=== PATIENT | female | born 1935 | race Caucasian/White ===

== ENCOUNTER → 2016-11-03 | Outpatient (CLI) | payer MEDICARE, OTHER ==
[~2016-11-03] MED LIST: ATOR10 PO; CEPH500C3 PO; COZA100T PO; LEVO.1 PO; LORT5TAB PO; PREV30CA36 PO; TOPR50TA PO
[2016-11-03 13:20] LABS: ALT (GPT) 21 U/L (10-53); ANION GAP 7 MEQ/L (5-15); AST (GOT) 24 U/L (15-37); BICARBONATE 29.3 MEQ/L (21.0-32.0); BLOOD UREA NITROGEN 16 MG/DL (7-18); CHLORIDE 107 MEQ/L (98-107); GLOMERULAR FILTRATION RATE 74 ML/MIN (>89); GLUCOSE,FASTING 103 MG/DL (74-99); POTASSIUM 4.4 MEQ/L (3.5-5.1); SODIUM (NA) 143 MEQ/L (136-145)
[2016-11-03 13:30] LABS: ALKALINE PHOSPHATASE 50 U/L (45-117); HDL CHOLESTEROL 61.3 MG/DL (40.0-60.0); LDL CHOLESTEROL 73 MG/DL (0-99); TOTAL BILIRUBIN ADULT 0.5 MG/DL (0.2-1.0)
== END ==
LOC: PLAB 08:12
PROVIDERS: ATTEND Family Medicine
DX: I10 Essential (primary) hypertension (principal); E78.2 Mixed hyperlipidemia; E03.8 Other specified hypothyroidism
CPT/HCPCS: 36415; 80053; 80061; 84443

== ENCOUNTER → 2016-11-05 | Outpatient (CLI) | payer MEDICARE, OTHER ==
[2016-11-05 13:11] LABS: BASOPHIL % 0.7 % (0.0-2.0); EOSINOPHIL # 0.1 TH/MM3 (0-0.4); EOSINOPHIL % 1.5 % (0.0-4.0); HEMATOCRIT 38.6 % (35.0-46.0); HEMO FLAGS DIFF FINAL; LYMPH % 26.4 % (9.0-44.0); LYMPHOCYTE # 1.3 TH/MM3 (1.0-4.8); MEAN CORPUSCULAR HEMOGLOBIN 31.6 PG (27.0-34.0); MEAN CORPUSCULAR HGB CONC 34.4 % (32.0-36.0); MONO % 11.1 % (0.0-8.0); NEUT % 60.3 % (16.0-70.0); PLATELET COUNT 180 TH/MM3 (150-450); RED BLOOD COUNT 4.19 MIL/MM3 (4.00-5.30); RED CELL DISTRIBUTION WIDTH 13.3 % (11.6-17.2)
== END ==
LOC: PLAB 10:17
PROVIDERS: ATTEND Family Medicine
DX: K21.9 Gastro-esophageal reflux disease without esophagitis (principal)
CPT/HCPCS: 36415; 85025; 87338

== ENCOUNTER → 2017-04-15 | Outpatient (CLI) | payer MEDICARE, OTHER ==
[2017-04-15 13:08] LABS: AUTOMATED NEUTROPHIL # 2.6 TH/MM3 (1.8-7.7); BASOPHIL % 0.7 % (0.0-2.0); EOSINOPHIL # 0.2 TH/MM3 (0-0.4); EOSINOPHIL % 3.3 % (0.0-4.0); HEMATOCRIT 40.2 % (35.0-46.0); HEMO FLAGS DIFF FINAL; LYMPH % 25.5 % (9.0-44.0); LYMPHOCYTE # 1.2 TH/MM3 (1.0-4.8); MEAN CELL VOLUME 95.5 FL (80.0-100.0); MEAN CORPUSCULAR HEMOGLOBIN 31.5 PG (27.0-34.0); MONO % 13.9 % (0.0-8.0); NEUT % 56.6 % (16.0-70.0); PLATELET COUNT 181 TH/MM3 (150-450); RED BLOOD COUNT 4.21 MIL/MM3 (4.00-5.30); WHITE BLOOD COUNT 4.7 TH/MM3 (4.0-11.0)
[2017-04-15 13:39] LABS: ANION GAP 8 MEQ/L (5-15); AST (GOT) 26 U/L (15-37); BICARBONATE 27.6 MEQ/L (21.0-32.0); BLOOD UREA NITROGEN 17 MG/DL (7-18); CHLORIDE 106 MEQ/L (98-107); GLOMERULAR FILTRATION RATE 70 ML/MIN (>89); GLUCOSE,FASTING 98 MG/DL (74-99); SODIUM (NA) 142 MEQ/L (136-145)
[2017-04-15 13:50] LABS: ALKALINE PHOSPHATASE 47 U/L (45-117); ALT (GPT) 23 U/L (10-53); HDL CHOLESTEROL 62.4 MG/DL (40.0-60.0); LDL CHOLESTEROL 92 MG/DL (0-99); TOTAL BILIRUBIN ADULT 0.4 MG/DL (0.2-1.0)
== END ==
LOC: PLAB 08:48
PROVIDERS: ATTEND Family Medicine
DX: I10 Essential (primary) hypertension (principal); E78.2 Mixed hyperlipidemia; K21.9 Gastro-esophageal reflux disease without esophagitis; E03.8 Other specified hypothyroidism
CPT/HCPCS: 36415; 80053; 80061; 84443; 85025

== ENCOUNTER → 2017-06-30 | Outpatient (CLI) | payer MEDICARE, OTHER ==
[2017-06-30 19:20] LABS: FREE T4 1.3 NG/DL (0.76-1.46)
== END ==
LOC: PLAB 15:29
PROVIDERS: ATTEND Family Medicine
DX: E03.8 Other specified hypothyroidism (principal)
CPT/HCPCS: 36415; 84439; 84443; 84480

== ENCOUNTER → 2017-10-22 | Outpatient (CLI) | payer MEDICARE, OTHER ==
[2017-10-22 10:59] LABS: ALBUMIN 3.6 GM/DL (3.4-5.0); AST (GOT) 26 U/L (15-37); BICARBONATE 29.5 MEQ/L (21.0-32.0); BLOOD UREA NITROGEN 18 MG/DL (7-18); CALCIUM 8.7 MG/DL (8.5-10.1); CHLORIDE 107 MEQ/L (98-107); CHOLESTEROL 141 MG/DL (120-200); CREATININE 0.69 MG/DL (0.50-1.00); GLOMERULAR FILTRATION RATE 81 ML/MIN (>89); GLUCOSE,FASTING 97 MG/DL (74-99); SODIUM (NA) 143 MEQ/L (136-145)
[2017-10-22 11:07] LABS: ALKALINE PHOSPHATASE 47 U/L (45-117); ALT (GPT) 22 U/L (10-53); CHOLESTEROL/ HDL RATIO 2.38 RATIO; LDL CHOLESTEROL 62 MG/DL (0-99); TOTAL BILIRUBIN ADULT 0.4 MG/DL (0.2-1.0); TOTAL PROTEIN 6.7 GM/DL (6.4-8.2); TRIGLYCERIDES 98 MG/DL (42-150)
== END ==
LOC: PLAB 08:16
PROVIDERS: ATTEND Family Medicine
DX: I10 Essential (primary) hypertension (principal); E78.2 Mixed hyperlipidemia; E03.8 Other specified hypothyroidism
CPT/HCPCS: 36415; 80053; 80061; 84443

== ENCOUNTER 2018-04-21 18:19 | Observation (INO) ==
[2018-04-21] MEDS ORDERED: Sod Chloride 0.9% Inj 1,000 ML IV.SIG ONE (19:17)
[2018-04-21] MEDS ORDERED: Famotidine PF Inj 20 MG/2 ML Vial IV.PUSH ONE (19:17)
--- NOTE | 2018-04-21 19:27 | ED ---
HPI General Chief Complaint: Abdominal Pain Stated Complaint: ABD pain Time Seen by Provider: 04/21/18 18:53 Source: patient Mode of arrival: ambulatory Limitations: no limitations History of Present Illness HPI narrative: Sudden onset of epigastric and left upper quadrant pain that is ripping gnawing and colicky in nature. It started last night he has been constant since that time but she has episodes when the pain waxes and wanes in severity. She has nausea but has not vomited and she has had 6 episodes of loose watery stool since this pain started. The only thing that she is been able to eat today were a few saltine crackers this morning and some water. The water seem to make the pain better in the food seem to make the pain worse. She has not observed any blood in her stools nor any black or tarry stools. She does not feel lightheaded faint and has not had any episodes of syncope. No chest pain dyspnea on exertion episodes of diaphoresis. No prior history of NV or stroke. No prior history of AAA. Only abdominal surgeries are cholecystectomy and hysterectomy. She has been told that she has a hiatal hernia. She was previously on Zantac and Protonix before that for her severe GERD but has ceased taking either and believes that her reflux symptoms are worse although this pain is distinct from the reflux symptoms. Reports that she had a headache last night that was quite severe for which she took one ibuprofen but it has since passed and she has no pain in her head whatsoever at this time. She denies any symptoms that might be consistent with a stroke either now or at the time of the headache. MD complaint: abdominal pain Onset (ago): hour(s) (24) Pain Consistency: constant and colicky Location: LUQ and epigastric Severity: moderate Severity scale (1-10): 6 Quality: other (gnawing or tearing) Radiation: back Relieving factors: other (drinking fluids) Exacerbating factors: other (eating food) Associated symptoms: nausea and diarrhea Related Data Hx Last Menstrual Period: Patient has history of hysterectomy Home Medications Medication Instructions Recorded Confirmed atorvastatin [Lipitor] 04/22/18 atorvastatin [Lipitor] 10 mg PO DAILY 04/22/18 04/22/18 levothyroxine 100 mcg PO DAILY 04/22/18 04/22/18 losartan 25 mg PO DAILY 04/22/18 04/22/18 metoprolol tartrate [Lopressor] 50 mg PO BID 04/22/18 04/22/18 Allergies Allergy/AdvReac Type Severity Reaction Status Date / Time Sulfa (Sulfonamide Allergy Severe Hives Verified 04/21/18 18:32 Antibiotics) Review of Systems Constitutional Denies chills, Denies fever(s) and Reports poor appetite Eyes Denies blurry vision and Denies eye pain ENT Denies epistaxis, Denies nasal congestion and Denies sore throat Cardiovascular Denies chest pain, Denies syncope and Denies edema Respiratory Denies cough and Denies dyspnea Gastrointestinal Reports abdominal pain, Reports belching, Denies melena, Denies hematochezia, Reports change in stool character, Reports cramping, Reports heartburn, Reports diarrhea, Reports loose stools, Reports nausea, Denies vomiting and Denies hematemesis Genitourinary Denies urinary frequency and Denies urinary urgency Musculoskeletal Reports back pain and Denies radiating pain into limb Integumentary/Breasts Denies rash and Denies skin ulcer Neurologic Denies abnormal speech, Denies focal weakness, Denies loss of vision and Denies numbness Psychiatric Denies paranoia and Denies visual hallucinations Endocrine Denies cold intolerance, Denies excessive sweating and Denies fatigue Hematologic/Lymphatic Denies easy bleeding and Denies easy bruising Allergic/Immunologic Denies urticaria and Denies throat swelling PMFSH Medical History Medical History Chronic GERD (Acute) Elevated cholesterol (Acute) H/O: hysterectomy (Acute) Hypertension (Acute) Hypothyroid (Acute) Surgical History Surgical History History of cholecystectomy (Acute) No history of previous surgery (Acute) Social History Social History Substance History: No History of Abuse Second Hand Smoke Exposure: No Smoking Status: Never smoker Tobacco Type: Cigarettes How Often Do You Have a Drink Containing Alcohol: Never Recent Travel in [place] within the Last 8 Weeks: No Recent Out of Country Travel within the Last 8 Weeks: No Immunization History Tetanus Immunization: <5 Years Hx Influenza Vaccine This Season: Yes Exam Narrative Exam Narrative: GENERAL: Well-appearing 82-year-old female lying on stretcher in no acute distress SKIN: Focused skin assessment warm/dry. HEAD: Atraumatic. Normocephalic. EYES: Pupils equal and round. No scleral icterus. No injection or drainage. ENT: No nasal bleeding or discharge. Mucous membranes pink and moist. NECK: Trachea midline. No JVD. CARDIOVASCULAR: Regular rate and rhythm. No murmur appreciated. Peripherals pulses equal and intact bilaterally in radial and DP. RESPIRATORY: No accessory muscle use. Clear to auscultation. Breath sounds equal bilaterally. GASTROINTESTINAL: Abdomen soft, mildly tender in epigastrium and left upper quadrant, strong aortic pulsation palpated in upper abdomen but no pulsatile mass observed, nondistended. Hepatic and splenic margins not palpable. MUSCULOSKELETAL: No obvious deformities. No clubbing. No cyanosis. No edema. NEUROLOGICAL: Awake and alert. No obvious cranial nerve deficits. Motor grossly within normal limits. Normal speech. PSYCHIATRIC: Appropriate mood and affect; insight and judgment normal. Course Reevaluation(s) Time: 20:45 Reevaluation #2: Informed patient of results obtained so far (see blood results) . She is still awaiting CT scan at this time and it was not performed yet because we are waiting for creatinine results. However she states that her symptoms are much improved although she still has some pain. She is stable and her [id number] has joined her at bedside. Advised patient that if CT scan is negative it might be prudent for an observation admission in order to trend cardiac enzymes and obtain an echocardiogram or stress test possibly. [id number] went to reassess patient but she was out of her room, presumably in CT area. Her [id number] is still at bedside. Initial Documented Vital Signs Temperature 98.6 F 04/21/18 18:30 Pulse Rate 68 04/21/18 18:30 Respiratory Rate 16 04/21/18 18:30 Blood Pressure 166/77 H 04/21/18 18:30 Pulse Oximetry 96 04/21/18 18:30 Last Documented Vital Signs Temperature 97.9 F 04/22/18 01:59 Pulse Rate 58 L 04/22/18 01:59 Respiratory Rate 20 04/22/18 01:59 Blood Pressure 112/63 04/22/18 01:59 Pulse Oximetry 95 04/22/18 01:59 Clinical Decision Support HEART Score Questions History: Moderately suspicious EKG: Non-specific repolarization disturbance Age: 65 years+ Risk Factors: 3 or more Risk Factors or Hx of Atherosclerotic Disease Initial Troponin: Normal Limit Heart Score HEART Score: 6 Medical Decision Making MDM Narrative Medical decision making narrative: 82-year-old female with sudden onset of constant gnawing or ripping style abdominal pain that is present in the upper abdomen is difficult for her to localize the exact position but she does feel that it radiates from front to her back. This is accompanied by nausea decreased appetite and 6 episodes of loose diarrhea but there was no melena or bright red blood per rectum. She denies any typical symptoms of NV and has no chest pain exertional dyspnea episodes of diaphoresis and no episodes of syncope. Due to my concern for possible aortic aneurysm versus perforation of gastric ulcer versus mesenteric ischemia versus atypical NV I ordered ECG, chest x-ray, CTA aortogram, cardiac enzymes, and lactic acid in addition to other basic labs. Even though I have some suspicion for an atypical presentation of ACS I will hold aspirin at this time until bleeding gastric ulcer or aortic rupture is ruled out. If labs unrevealing and CT does not reveal diagnosis we will plan to admit patient for observation in order to rule out ACS. I offered the patient analgesia but she declines. However she did request for an antiemetic and I gave her Zofran IV in addition to famotidine IV and 1 L bolus NS. Differential Diagnosis Differential Diagnosis: AAA versus aortic dissection versus atypical presentation NV versus pancreatitis versus gastric ulcer versus gastritis versus esophagitis versus hiatal hernia versus perforated gastric ulcer versus gastroenteritis. Medical Records Medical records reviewed: Yes I reviewed the patient's medical records. Patient was admitted to the hospital in 2002 for an episode of chest pain. She underwent left heart catheterization which revealed mild coronary artery disease in all 3 vessels but there was no critical stenosis and she did not receive any intervention. She had a normal echocardiogram at that time. The emergency department visit note from her visit in 2010 was not available Lab Data Lab results reviewed: Yes I reviewed the patient's lab results. Result diagrams: 04/21/18 19:45 04/21/18 19:45 Lab Results 04/21/18 04/21/18 04/21/18 Range/Units 19:45 19:45 19:45 CBC w Diff Auto diff final WBC 7.0 (4.0-11.0) th/mm3 RBC 4.43 (4.00-5.30) mil/mm3 Hgb 14.0 (11.6-15.3) gm/dL Hct 41.3 (35.0-46.0) % MCV 93.4 (80.0-100.0) fL MCH 31.7 (27.0-34.0) pg MCHC 33.9 (32.0-36.0) % RDW 12.7 (11.6-17.2) % Plt Count 156 (150-450) th/mm3 MPV 9.8 (7.0-11.0) fL Neut % (Auto) 70.0 (16.0-70.0) % Lymph % (Auto) 15.8 (9.0-44.0) % [place] % (Auto) 12.3 H (0.0-8.0) % Eos % (Auto) 1.4 (0.0-4.0) % Baso % (Auto) 0.5 (0.0-2.0) % Neut # (Auto) 4.9 (1.8-7.7) th/mm3 Lymph # (Auto) 1.1 (1.0-4.8) th/mm3 [place] # (Auto) 0.9 (0.0-0.9) th/mm3 Eos # (Auto) 0.1 (0.0-0.4) th/mm3 Baso # (Auto) 0.0 (0.0-0.2) th/mm3 WBC Differential . Differential Comment . Sodium 140 (136-145) meq/L Potassium 3.8 (3.5-5.1) meq/L Chloride 105 (98-107) meq/L Carbon Dioxide 29.1 (21.0-32.0) meq/L Anion Gap 6 (5-15) meq/L BUN 17 (7-18) mg/dL Creatinine 0.80 (0.50-1.00) mg/dL Estimated GFR 69 L (>89) mL/min Random Glucose 114 H (74-106) mg/dL Lactic Acid 1.2 (0.4-2.0) mmol/L Calcium 9.7 (8.5-10.1) mg/dL Total Bilirubin 0.4 (0.2-1.0) mg/dL AST 25 (15-37) U/L ALT 22 (10-53) U/L Alkaline Phosphatase 50 (45-117) U/L Total Creatine Kinase (26-192) U/L Troponin I 0.04 (0.02-0.05) ng/mL Total Protein 7.1 (6.4-8.2) g/dL Albumin 3.6 (3.4-5.0) g/dL Lipase 195 (73-393) U/L Urine Color (Yellw/Straw) Urine Clarity (Clear) Urine pH (5.0-8.5) Ur Specific [place] (1.002-1.035) Urine Protein (Neg-Trace) mg/dL Urine Glucose (UA) (Negative) mg/dL Urine Ketones (Negative) mg/dL Urine Occult Blood (Negative) Urine Nitrate (Negative) Urine Bilirubin (Negative) Urine Urobilinogen (Less than 2) mg/dL Ur Leukocyte Esterase (Negative) Urine RBC (0-3) /hpf Urine WBC (0-5) /hpf Ur Squamous Epith Cells (0-5) /hpf Micro UA Comment Urine Culture Comments 04/21/18 04/22/18 Range/Units 20:50 01:00 CBC w Diff WBC (4.0-11.0) th/mm3 RBC (4.00-5.30) mil/mm3 Hgb (11.6-15.3) gm/dL Hct (35.0-46.0) % MCV (80.0-100.0) fL MCH (27.0-34.0) pg MCHC (32.0-36.0) % RDW (11.6-17.2) % Plt Count (150-450) th/mm3 MPV (7.0-11.0) fL Neut % (Auto) (16.0-70.0) % Lymph % (Auto) (9.0-44.0) % [place] % (Auto) (0.0-8.0) % Eos % (Auto) (0.0-4.0) % Baso % (Auto) (0.0-2.0) % Neut # (Auto) (1.8-7.7) th/mm3 Lymph # (Auto) (1.0-4.8) th/mm3 [place] # (Auto) (0.0-0.9) th/mm3 Eos # (Auto) (0.0-0.4) th/mm3 Baso # (Auto) (0.0-0.2) th/mm3 WBC Differential Differential Comment Sodium (136-145) meq/L Potassium (3.5-5.1) meq/L Chloride (98-107) meq/L Carbon Dioxide (21.0-32.0) meq/L Anion Gap (5-15) meq/L BUN (7-18) mg/dL Creatinine (0.50-1.00) mg/dL Estimated GFR (>89) mL/min Random Glucose (74-106) mg/dL Lactic Acid (0.4-2.0) mmol/L Calcium (8.5-10.1) mg/dL Total Bilirubin (0.2-1.0) mg/dL AST (15-37) U/L ALT (10-53) U/L Alkaline Phosphatase (45-117) U/L Total Creatine Kinase 94 (26-192) U/L Troponin I 0.05 (0.02-0.05) ng/mL Total Protein (6.4-8.2) g/dL Albumin (3.4-5.0) g/dL Lipase (73-393) U/L Urine Color Yellow (Yellw/Straw) Urine Clarity Clear (Clear) Urine pH 6.0 (5.0-8.5) Ur Specific [place] 1.015 (1.002-1.035) Urine Protein Negative (Neg-Trace) mg/dL Urine Glucose (UA) Negative (Negative) mg/dL Urine Ketones Negative (Negative) mg/dL Urine Occult Blood Negative (Negative) Urine Nitrate Negative (Negative) Urine Bilirubin Negative (Negative) Urine Urobilinogen 0.2 (Less than 2) mg/dL Ur Leukocyte Esterase Negative (Negative) Urine RBC 0-3 (0-3) /hpf Urine WBC 0-5 (0-5) /hpf Ur Squamous Epith Cells 0-5 (0-5) /hpf Micro UA Comment Culture not ind Urine Culture Comments Culture not ind Imaging Data Attestation: I personally reviewed and interpreted this imaging study as follows : My impression: Normal two-view chest with good lung expansion. There is no evidence of effusion infiltrate or pulmonary edema. No fractures observed. No cardiomegaly observed. Radiologist's impression: Abdomen/Pelvis CTA 04/21/18 19:20 CONCLUSION: 1. Moderate calcific atherosclerotic disease without evidence of aneurysmal enlargement of the abdominal aorta or hemodynamically significant steno- occlusive changes. 2. Large calcified gallstone Chest X-Ray 04/21/18 19:20 CONCLUSION: Nonspecific interstitial lung disease No evidence of acute airspace disease, mass densities or effusions. No evidence of free air. Right upper quadrant calcification suggesting a gallstone. ECG Data EKG Prior to Arrival: No Attestation: I personally reviewed and interpreted this ECG as follows: Interpretation: Rate 58 normal sinus rhythm MA interval 156 ms QRS interval 77 ms QTc interval 412 ms there is nonspecific ST changes and T-wave inversions most prominent in the inferior lateral leads there is motion artifact present in leads V4, V5 and V6 although this does not significantly encumber interpretation of these leads; not a STEMI Discharge Plan Discharge Disposition Patient Disposition: 30 Still Patient Physicians Team ED Provider: Mathieu Jones Primary Care Provider: Carolina Barr Attending Provider: Alonso Munguia Discharge Interventions Interventions: ED Discharge Assessment Last Done: 04/22/18 01:22 Vital Signs Last Done: 04/22/18 01:21 Status ED Status: Left Department Discharge Information Discharge Date/Time: 04/22/18 01:23
[2018-04-21 20:03] LABS: Baso % (Auto) 0.5 % (0.0-2.0); Eos # (Auto) 0.1 th/mm3 (0.0-0.4); Eos % (Auto) 1.4 % (0.0-4.0); Hematocrit 41.3 % (35.0-46.0); Lymph # (Auto) 1.1 th/mm3 (1.0-4.8); Lymph % (Auto) 15.8 % (9.0-44.0); Mean Corpuscular HGB Conc 33.9 % (32.0-36.0); Mean Corpuscular Hemoglobin 31.7 pg (27.0-34.0); Mean Corpuscular Volume 93.4 fL (80.0-100.0); Mean Platelet Volume 9.8 fL (7.0-11.0); Mono # (Auto) 0.9 th/mm3 (0.0-0.9); Mono % (Auto) 12.3 % (0.0-8.0); Neut # (Auto) 4.9 th/mm3 (1.8-7.7); Platelet Count 156 th/mm3 (150-450); Red Blood Count 4.43 mil/mm3 (4.00-5.30); Red Cell Distribution Width 12.7 % (11.6-17.2)
[2018-04-21 20:11] LABS: Chloride 105 meq/L (98-107); Potassium 3.8 meq/L (3.5-5.1); Sodium 140 meq/L (136-145)
[2018-04-21 20:15] LABS: Calcium 9.7 mg/dL (8.5-10.1)
[2018-04-21 20:16] LABS: Albumin 3.6 g/dL (3.4-5.0); Anion Gap 6 meq/L (5-15); Blood Urea Nitrogen 17 mg/dL (7-18); Carbon Dioxide 29.1 meq/L (21.0-32.0); Glucose,Random 114 mg/dL (74-106); Lipase 195 U/L (73-393)
[2018-04-21 20:18] LABS: Alanine Aminotransferase 22 U/L (10-53); Aspartate Aminotransferase 25 U/L (15-37); Glomerular Filtration Rate 69 mL/min (>89)
[2018-04-21 20:20] LABS: Total Protein 7.1 g/dL (6.4-8.2)
[2018-04-21 20:21] LABS: Alkaline Phosphatase 50 U/L (45-117)
[2018-04-21 20:23] LABS: Troponin I 0.04 ng/mL (0.02-0.05)
--- NOTE | 2018-04-21 20:30 | XR ---
EXAM DATE: 04/21/2018 8:26 PM EDT AGE/SEX: 82 years / Female INDICATIONS: . Evaluate for free air. Chest pain, abdominal pain and vomiting since this morning. CLINICAL DATA: This is the patient's initial encounter. Patient reports that signs and symptoms have been present for 1 day and indicates a pain score of 5/10. MEDICAL/SURGICAL HISTORY: Hiatal hernia. Hysterectomy. Cholecystectomy. COMPARISON: No prior exams available for comparison. FINDINGS: Generalized interstitial prominence is noted. There is no evidence of consolidating airspace disease, mass densities or effusions. Heart is within normal limits in size. Osseous structures are grossly intact. Calcified gallstone is seen in the right upper quadrant. CONCLUSION: Nonspecific interstitial lung disease No evidence of acute airspace disease, mass densities or effusions. No evidence of free air. Right upper quadrant calcification suggesting a gallstone. Electronically signed by: Len Gamez MD 04/21/2018 8:29 PM EDT
[2018-04-21 21:09] LABS: Bilirubin,Urine Negative (Negative); Clarity,Urine Clear (Clear); Color,Urine Yellow (Yellw/Straw); Glucose,Urine (UA) Negative (Negative); Leukocyte Esterase,Urine Negative (Negative); Nitrite,Urine Negative (Negative); Specific Gravity,Urine 1.015 (1.002-1.035); Urobilinogen,Urine 0.2 mg/dL (Less than 2)
[2018-04-21 21:13] LABS: RBC,Urine 0-3 /hpf (0-3); Squamous Epithelial Cell,Urine 0-5 /hpf (0-5); WBC,Urine 0-5 /hpf (0-5)
--- NOTE | 2018-04-21 22:41 | CT ---
EXAM DATE: 04/21/2018 10:35 PM EDT AGE/SEX: 82 years / Female INDICATIONS: Abdominal pain, diarrhea. CLINICAL DATA: This is the patient's initial encounter. Patient reports that signs and symptoms have been present for 1 day and indicates a pain score of 8/10. MEDICAL/SURGICAL HISTORY: Hypertension. Gastroesophageal reflux disease. Hysterectomy. Cholecyste ctomy. RADIATION DOSE: 12.79 CTDI (mGy) COMPARISON: No prior exams available for comparison. TECHNIQUE: Volumetric scanning was performed using a multi-row detector CT scanner during bolus infu mayank of 100 ml Omnipaque 350 (iohexol) nonionic water-soluble contrast as a single exam dose. The data was post processed with a variety of visualization algorithms including full volume maximum inte nsity projection, multi-planar sliding thin slab reformation, curved planar reformation, and surface rendering techniques. Using automated exposure control and adjustment of the mA and/or kV according to patient size, radiation dose was kept as low as reasonably achievable to obtain optimal diagnostic quality images. DICOM format image data is available electronically for review and comparison. FINDINGS: Abdominal Aorta: Moderate calcific plaque is present throughout the abdominal aorta. There is focal calcified plaque at the origin of the celiac and superior mesenteric arteries. There is no evidence o f significant stenosis. Mild plaque is seen at the origin of the renal arteries which are otherwise w idely patent. Inferior mesenteric artery is patent. There is no evidence of aneurysmal enlargement or aortic stenosis. Bifurcation: Patent Right Pelvis: The right common iliac, internal iliac, and external iliac vessels are patent without luminal irregularity. Left Pelvis: The left common iliac, internal iliac, and external iliac vessels are patent and withou t luminal irregularity. Significant nonvascular findings include a large calcified gallstone. Soft tissue structures of the a bdomen and pelvis are otherwise unremarkable. CONCLUSION: 1. Moderate calcific atherosclerotic disease without evidence of aneurysmal enlargement of the abdom inal aorta or hemodynamically significant steno-occlusive changes. 2. Large calcified gallstone Electronically signed by: Len Gamez MD 04/21/2018 10:40 PM EDT
[2018-04-22 01:51] LABS: Troponin I 0.05 ng/mL (0.02-0.05)
[2018-04-22 04:39] LABS: Troponin I 0.05 ng/mL (0.02-0.05)
[2018-04-22] MEDS ORDERED: Naloxone Inj 0.4 MG/ML Vial IV.PUSH PRN (04:43)
[2018-04-22] MEDS ORDERED: Acetaminophen 325 MG Tablet PO PRN (04:46)
[2018-04-22] MEDS ORDERED: Bisacodyl 10 MG Supp RECTAL PRN (04:46)
[2018-04-22] MEDS: Sod Chloride 0.9% Inj 1,000 ML IV.CONT SCH ×2 (04:59→19:59)
[2018-04-22] MEDS: Levothyroxine 100 MCG Tablet PO SCH (04:59)
[2018-04-22] MEDS: Metoprolol Tartrate 50 MG Tablet PO SCH ×2 (09:20→19:59)
--- NOTE | 2018-04-22 11:19 | US ---
EXAM DATE: 04/22/2018 10:52 AM EDT AGE/SEX: 82 years / Female INDICATIONS: Right upper quadrant pain. CLINICAL DATA: This is the patient's initial encounter. Patient reports that signs and symptoms have been present for 4 - 6 days and indicates a pain score of 6/10. MEDICAL/SURGICAL HISTORY: Gastroesophageal reflux disease. Hypercholesterolemia. Hypertension . Hypothyroidism. Hysterectomy. COMPARISON: No prior exams available for comparison. MEASUREMENTS: Liver:__ 13.8 cm. Common Bile Duct:__ 5mm. FINDINGS: Liver: Normal echotexture without focal lesion or ductal dilatation. Portal Vein: Hepatopedal flow seen in portal vein. Common Duct: No intraluminal mass or stone visualized. Gallbladder: Large calcified gallstone measuring up to around 2.1 cm in diameter. Pancreas: The visualized portions are within normal limits Right Kidney: Normal echotexture and cortical thickness. No mass or hydronephrosis. CONCLUSION: 1. Large calcified gallstone. No biliary ductal dilatation. Exam otherwise unremarkable. Electronically signed by: dUay Tobin MD 04/22/2018 11:17 AM EDT
[2018-04-22] MEDS ORDERED: Sod Chloride 0.9% Inj 1,000 ML IV.SIG ONE (13:25)
--- NOTE | 2018-04-22 13:32 | P.HPIM ---
History of Present Illness Primary Care Physician: Carolina Barr MD Chief Complaint: Abdominal pain with nausea History of Present Illness: This patient is a 82-year-old female with a history of hypertension. She has had 2-3 days of intractable nausea pain. Patient says he has chronic gastritis and has been on and off of a proton pump inhibitor per her proposal specialist to avoid long-term side effects of this medication. Intermittently she has also been on Zantac. She reports left-sided abdominal pain which was severe, not relieved with [place]. She gets this pain periodically and is usually relieved with a proton pump inhibitor. She also had a headache which has been relieved with Tylenol. She came to the emergency room because of the pain was not improved and she had taken ibuprofen as well without improvement. Patient knows that she has not had any fevers or chills. She has not had any food for the last 48 hours because of the nausea and a CT abdomen pelvis was done in the emergency room which did show a large gallstone without evidence of pericolic inflammation. LFTs are normal. Patient is known about this gallstone for several decades and has been under conservative management per her primary care provider. Have some EKG changes which are nonspecific on my review and a cardiac enzymes are negative. - Diagnosis (1) Gall stone (2) Abdominal pain (3) HTN (hypertension) Review of Systems All other systems reviewed negative except as stated in HPI PMFSH - History History Provided By: Patient - Medical History Medical History: Medical History (Last Updated 04/22/18 @ 13:29 by Negra Hook MD) Chronic GERD Elevated cholesterol Hx of hysterectomy Hypertension Hypothyroid - Surgical History Surgical History: Surgical History (Last Updated 04/22/18 @ 13:30 by Negra Hook MD) No history of previous surgery (Acute) - Family History Family History: Family History (Last Updated 04/22/18 @ 13:30 by Negra Hook MD) Other Stroke - Tobacco History Second Hand Smoke Exposure: No Tobacco Use In Past 30 Days: No Smoking Status: Never smoker Tobacco Type: Cigarettes - Alcohol History How Often Do You Have a Drink Containing Alcohol: Never - Substance Use History Substance History: No History of Abuse - Travel History Recent Travel in the [place] Within the Last 8 Weeks: No Recent Travel Out of the Country Within the Last 8 Weeks: No - Immunization History Tetanus Immunization: Unable to Assess Hx Influenza Vaccine This Season: Yes Medications and Allergies Active Medications: Active Medications Acetaminophen (Tylenol) 650 mg PO Q4H PRN PRN Reason: Temp > 100.4 Hydrocodone Bitart/Acetaminophen ([place] 5/325) 1 tab PO Q4H PRN PRN Reason: Pain Scale 4 To 10 Last Admin: 04/22/18 09:19 Dose: 1 tab Al Hydroxide/Mg Hydroxide (Milk Of Magnesia Liq) 30 ml PO Q12H PRN PRN Reason: Mild Constipation Atorvastatin Calcium (Lipitor) 10 mg PO DAILY [facility] Last Admin: 04/22/18 09:18 Dose: 10 mg Bisacodyl (Dulcolax Supp) 10 mg RECTAL DAILY PRN PRN Reason: SEVERE CONSITIPATION Sodium Chloride (Ns Inj) 1,000 mls @ 75 mls/hr IV.CONT .[id number] [facility] Last Admin: 04/22/18 04:59 Dose: 75 mls/hr Sodium Chloride (Ns Inj) 1,000 mls @ 0 mls/hr IV.SIG BOLUS ONE Stop: 04/22/18 13:26 Lactulose (Lactulose Liq) 30 ml PO DAILY PRN PRN Reason: SEVERE CONSITIPATION Levothyroxine Sodium (Synthroid) 100 mcg PO DAILY@0600 [facility] Last Admin: 04/22/18 04:59 Dose: 100 mcg Losartan Potassium (Cozaar) 25 mg PO DAILY [facility] Last Admin: 04/22/18 09:20 Dose: Not Given Metoprolol Tartrate (Lopressor) 50 mg PO BID [facility] Last Admin: 04/22/18 09:20 Dose: Not Given Miscellaneous (Pill Splitter) 1 each OTHER UNSCH PRN PRN Reason: PILL SPIT Naloxone HCl (Narcan Inj) 0.4 mg IV.PUSH UNSCH PRN PRN Reason: SEE LABEL COMMENTS Ondansetron HCl (Zofran Inj) 4 mg IV.PUSH Q6H PRN PRN Reason: NAUSEA OR VOMITING Pantoprazole Sodium (Protonix Inj) 40 mg IV.PUSH Q24H [facility] Sennosides (Senokot) 17.2 mg PO Q12H PRN PRN Reason: Moderate Constipation Sodium Chloride (Ns Flush) 2 ml IV.FLUSH PRN PRN PRN Reason: FLUSH AFTER USING IV ACCESS Last Admin: 04/21/18 19:32 Dose: 2 ml Sodium Chloride (Ns Flush) 2 ml IV.FLUSH PRN PRN PRN Reason: FLUSH AFTER USING IV ACCESS Sodium Chloride (Ns Flush) 2 ml IV.FLUSH BID ANIL Last Admin: 04/22/18 09:20 Dose: 2 ml Allergies Allergy/AdvReac Type Severity Reaction Status Date / Time Sulfa (Sulfonamide Allergy Severe Hives Verified 04/21/18 18:32 Antibiotics) Home Medications Medication Instructions Recorded Confirmed Type atorvastatin [Lipitor] 10 mg PO DAILY 04/22/18 04/22/18 History levothyroxine 100 mcg PO DAILY 04/22/18 04/22/18 History losartan 25 mg PO DAILY 04/22/18 04/22/18 History metoprolol tartrate [Lopressor] 50 mg PO BID 04/22/18 04/22/18 History Exam Vital signs: Vital Signs 04/21/18 18:30 04/21/18 19:00 04/21/18 21:00 Temperature 98.6 F Pulse Rate 68 62 62 Respiratory Rate 16 16 20 Blood Pressure 166/77 H 176/64 H 139/65 Pulse Oximetry 96 98 99 04/21/18 23:17 04/22/18 01:21 04/22/18 01:59 Temperature 97.9 F Pulse Rate 57 L 58 L 58 L Respiratory Rate 20 18 20 Blood Pressure 139/69 128/69 112/63 Pulse Oximetry 95 95 04/22/18 06:02 04/22/18 08:00 Temperature 97.2 F L Pulse Rate 57 L Respiratory Rate 18 18 Blood Pressure 115/62 Pulse Oximetry 99 Intake & Output 04/21/18 04/22/18 04/22/18 18:59 06:59 18:59 Intake Total 1000 / 1000 Balance 1000 / 1000 Weight 60 kg 62.5 kg Intake: IV 1000 / 1000 NS Inj 1,000 ML @ Wide Open IV. 1000 / 1000 SIG BOLUS ONE Rx#:[id number] Oral 0 / 0 Other: # Voids 2 Date of Last Bowel Movement 04/21/18 Weight On Admission 60.874 kg Narrative: GENERAL: Well-nourished, well-developed patient. SKIN: Warm and dry. Dry mucous membranes HEAD: Normocephalic. EYES: No scleral icterus. No injection or drainage. NECK: Supple, trachea midline. No JVD or lymphadenopathy. CARDIOVASCULAR: Regular rate and rhythm without murmurs, gallops, or rubs. RESPIRATORY: Breath sounds equal bilaterally. No accessory muscle use. GASTROINTESTINAL: Abdomen soft, tender in the left epigastrium with no Pacheco sign or rebound MUSCULOSKELETAL: No cyanosis, or edema. BACK: Nontender without obvious deformity. No CVA tenderness. NEUROLOGICAL: Awake and alert. Cranial nerves II through XII intact. Motor and sensory grossly within normal limits. Five out of 5 muscle strength in all muscle groups. Normal speech. Results - Labs CBC & Chem 7: 04/21/18 19:45 04/21/18 19:45 Labs: Short CBC 04/21/18 Range/Units 19:45 WBC 7.0 (4.0-11.0) th/mm3 Hgb 14.0 (11.6-15.3) gm/dL Hct 41.3 (35.0-46.0) % Plt Count 156 (150-450) th/mm3 BMP 04/21/18 19:45 Sodium 140 Potassium 3.8 Chloride 105 Carbon Dioxide 29.1 BUN 17 Creatinine 0.80 Calcium 9.7 Cardiac Enzymes 04/21/18 04/22/18 04/22/18 Range/Units 19:45 01:00 04:10 Total Creatine Kinase 94 93 (26-192) U/L Troponin I 0.04 0.05 0.05 (0.02-0.05) ng/mL Liver Function 04/21/18 Range/Units 19:45 Total Bilirubin 0.4 (0.2-1.0) mg/dL AST 25 (15-37) U/L ALT 22 (10-53) U/L Alkaline Phosphatase 50 (45-117) U/L Albumin 3.6 (3.4-5.0) g/dL Urine 04/21/18 Range/Units 20:50 Urine Color Yellow (Yellw/Straw) Urine Clarity Clear (Clear) Urine pH 6.0 (5.0-8.5) Ur Specific [place] 1.015 (1.002-1.035) Urine Protein Negative (Neg-Trace) mg/dL Urine Glucose (UA) Negative (Negative) mg/dL - Imaging Impressions Abdomen/Pelvis CTA 04/21/18 19:20 CONCLUSION: 1. Moderate calcific atherosclerotic disease without evidence of aneurysmal enlargement of the abdominal aorta or hemodynamically significant steno- occlusive changes. 2. Large calcified gallstone Chest X-Ray 04/21/18 19:20 CONCLUSION: Nonspecific interstitial lung disease No evidence of acute airspace disease, mass densities or effusions. No evidence of free air. Right upper quadrant calcification suggesting a gallstone. Gallbladder Ultrasound 04/22/18 00:00 CONCLUSION: 1. Large calcified gallstone. No biliary ductal dilatation. Exam otherwise unremarkable. Caprini VTE Risk Assessment Caprini VTE Risk Assessment: Moderate/High Risk (score >= 2) Caprini Risk Assessment Model: Point Value = 1 Point Value = 2 Point Value = 3 Point Value = 5 Age 41-60 Minor surgery BMI > 25 kg/m2 Swollen legs Varicose veins or History of unexplained or recurrent spontaneous Oral contraceptives or hormone replacement Sepsis (< 1 month) Serious lung disease, including pneumonia (< 1 month) Abnormal pulmonary function Acute myocardial infarction Congestive heart failure (< 1 month) History of inflammatory bowel disease Medical patient at bed rest Age 61-74 Arthroscopic surgery Major open surgery (> 45 min) Laparoscopic surgery (> 45 min) Malignancy Confined to bed (> 72 hours) Immobilizing plaster cast Central venous access Age >= 75 History of VTE Family history of VTE Factor V Leiden Prothrombin [id number] Lupus anticoagulant Anticardiolipin antibodies Elevated serum homocysteine Heparin-induced thrombocytopenia Other congenital or acquired thrombophilia Stroke (< 1 month) Elective arthroplasty Hip, pelvis, or leg fracture Acute spinal cord injury (< 1 month) Prophylaxis Regimen: Total Risk Factor Score Risk Level Prophylaxis Regimen 0-1 Low Early ambulation 2 Moderate Order ONE of the following: *Sequential Compression Device (SCD) *Heparin 5000 units SQ BID 3-4 Higher Order ONE of the following medications: *Heparin 5000 units SQ TID *Enoxaparin/Lovenox 40 mg SQ daily (WT < 150 kg, CrCl > 30 mL/min) *Enoxaparin/Lovenox 30 mg SQ daily (WT < 150 kg, CrCl > 10-29 mL/min) *Enoxaparin/Lovenox 30 mg SQ BID (WT < 150 kg, CrCl > 30 mL/min) AND/OR *Sequential Compression Device (SCD) 5 or more Highest Order ONE of the following medications: *Heparin 5000 units SQ TID (Preferred with Epidurals) *Enoxaparin/Lovenox 40 mg SQ daily (WT < 150 kg, CrCl > 30 mL/min) *Enoxaparin/Lovenox 30 mg SQ daily (WT < 150 kg, CrCl > 10-29 mL/min) *Enoxaparin/Lovenox 30 mg SQ BID (WT < 150 kg, CrCl > 30 mL/min) AND *Sequential Compression Device (SCD) Assessment and Plan - Assessment (1) Gall stone Code(s): K80.20 - Calculus of gallbladder without cholecystitis without obstruction Status: Acute Plan: He has known gallstone disease several decades if unnecessary There is no inflammation at this time. Pain is atypical and in the left upper quadrant of the abdomen at this time. Outpatient referral to general surgery is appropriate at this time if patient able to tolerate diet (2) Abdominal pain Code(s): R10.9 - Unspecified abdominal pain Status: Acute Plan: Etiology unclear May be due to gallstone Stratus We will continue proton pump inhibitor Advance diet to liquids and follow clinically antiemetics and pain medication as needed (3) HTN (hypertension) Code(s): I10 - Essential (primary) hypertension Status: Acute Plan: Patient was a bit hypotensive having been dehydrated from her nausea Resume home medications when appropriate Continue IV hydration - Plan Discharge in a.m. if able to tolerate diet Continue IV hydration H&P: Quality - VTE Deep Vein Thrombosis/Pulmonary Embolism Present on Admission: No
[2018-04-22] MEDS ORDERED: Pantoprazole Inj 40 MG Vial IV.PUSH SCH (14:00)
--- NOTE | 2018-04-22 14:46 | ECG ---
Date Performed: 04/22/2018 Time Performed: 02:53:03 PTAGE: 82 years EKG: SINUS BRADYCARDIA NONSPECIFIC ST & T-WAVE ABNORMALITY BORDERLINE ECG Since the PREVIOUS TRACING , no significant change noted PREVIOUS TRACIN04/21/2018 23.34 DOCTOR: Satish Slater Interpretating Date/Time 04/22/2018 14:40:00
--- NOTE | 2018-04-22 14:46 | ECG ---
Date Performed: 04/21/2018 Time Performed: 23:34:25 PTAGE: 82 years EKG: SINUS BRADYCARDIA MINIMAL ST DEPRESSION BORDERLINE ECG Since the PREVIOUS TRACING , no significant change noted PREVIOUS TRACIN04/21/2018 19.37 DOCTOR: Satish Slater Interpretating Date/Time 04/22/2018 14:40:15
--- NOTE | 2018-04-22 14:47 | ECG ---
Date Performed: 04/21/2018 Time Performed: 19:37:51 PTAGE: 82 years EKG: SINUS BRADYCARDIA NONSPECIFIC ST & T-WAVE ABNORMALITY BORDERLINE ECG Since the PREVIOUS TRACING , no significant change noted PREVIOUS TRACIN07/30/2003 23.54 DOCTOR: Satish Slater Interpretating Date/Time 04/22/2018 14:40:31
[2018-04-22 22:13] VITALS: RESP 20
[2018-04-23] MEDS: Levothyroxine 100 MCG Tablet PO SCH (06:22)
[2018-04-23 07:50] VITALS: TEMP 98.1; O2SAT 94
[2018-04-23] MEDS: Metoprolol Tartrate 50 MG Tablet PO SCH (08:32)
[2018-04-23 11:23] VITALS: BP 136/60; PULSE 78
--- NOTE | 2018-04-23 11:26 | P.PNIM ---
Subjective Interval history: Patient seen and evaluated in follow-up for abdominal pain. Likely multifactorial due to gastritis. Patient has also a gallstone but this has been present for quite some time there is no inflammation gallbladder images. Patient has great improvement with Protonix. She has been trying to wean this per her network security engineer. Patient's felt much better and tolerating diet to take either Protonix or Dexilant depending on her insurance carrier and to follow with her gastrointestinal physician for possible endoscopy. If this is not through the problem patient may need a cholecystectomy electively. She expressed understanding and will be discharged home Physical Exam Vital signs: Vital Signs 04/22/18 12:00 04/22/18 16:00 04/22/18 20:00 Temperature 96.4 F L 97.3 F L Pulse Rate 81 61 Respiratory Rate 18 16 20 Blood Pressure 125/62 125/62 Pulse Oximetry 99 97 04/23/18 00:00 04/23/18 04:00 04/23/18 07:49 Temperature 96.7 F L 96.7 F L 98.1 F Pulse Rate 64 81 79 Respiratory Rate 20 20 20 Blood Pressure 132/63 137/65 140/64 Pulse Oximetry 95 97 94 L 04/23/18 11:22 Temperature 98.1 F Pulse Rate 78 Respiratory Rate 20 Blood Pressure 136/60 Pulse Oximetry 94 L Intake & Output 04/22/18 04/23/18 04/23/18 18:59 06:59 18:59 Intake Total 2240 / 2240 120 / 120 Balance 2240 / 2240 120 / 120 Weight 61.8 kg Intake: IV 1999 / 1999 NS Inj 1,000 ML @ 75 mls/hr IV. 1000 / 1000 CONT .[id number] ANIL Rx#: [id number] NS Inj 1,000 ML @ Wide Open IV. 1000 / 1000 SIG BOLUS ONE Rx#:[id number] Oral 240 / 240 120 / 120 Other: # Voids 4 Narrative: GENERAL: Well-nourished, well-developed patient. SKIN: Warm and dry. HEAD: Normocephalic. EYES: No scleral icterus. No injection or drainage. NECK: Supple, trachea midline. No JVD or lymphadenopathy. CARDIOVASCULAR: Regular rate and rhythm without murmurs, gallops, or rubs. RESPIRATORY: Breath sounds equal bilaterally. No accessory muscle use. GASTROINTESTINAL: Abdomen soft, non-tender, nondistended. MUSCULOSKELETAL: No cyanosis, or edema. BACK: Nontender without obvious deformity. No CVA tenderness. NEUROLOGICAL: Awake and alert. Cranial nerves II through XII intact. Motor and sensory grossly within normal limits. Five out of 5 muscle strength in all muscle groups. Normal speech. Results - Labs CBC & Chem 7: 04/21/18 19:45 04/21/18 19:45 Assessment and Plan - Assessment (1) Gall stone Code(s): K80.20 - Calculus of gallbladder without cholecystitis without obstruction Status: Acute Plan: she has known gallstone disease several decades There is no inflammation at this time on images. Pain is atypical and in the left upper quadrant of the abdomen at this time. Outpatient referral to general surgery is appropriate at this time if patient able to tolerate diet (2) Abdominal pain Code(s): R10.9 - Unspecified abdominal pain Status: Acute Plan: Etiology unclear May be due to gallstone versus gastritis We will continue proton pump inhibitor Advance diet to liquids and follow clinically antiemetics and pain medication as needed (3) HTN (hypertension) Code(s): I10 - Essential (primary) hypertension Status: Acute Plan: Resolved, resume home medicines - Plan Discharge home Activity unrestricted Diet regular/low fat
== END 2018-04-23 12:06 | disposition home or self-care (01) ==
LOC: PHED 18:19 → PH3 18:19 → PHEDA 18:19 → PH3 04-22 01:23
PROVIDERS: ADMIT Hospitalist; ATTEND Hospitalist
DX: K80.20 Calculus of gallbladder without cholecystitis without obstruction; K44.9 Diaphragmatic hernia without obstruction or gangrene; E03.9 Hypothyroidism, unspecified; R07.89 Other chest pain; Z88.2 Allergy status to sulfonamides; K29.50 Unspecified chronic gastritis without bleeding; E86.0 Dehydration; E78.00 Pure hypercholesterolemia, unspecified; F17.210 Nicotine dependence, cigarettes, uncomplicated; I10 Essential (primary) hypertension; R94.31 Abnormal electrocardiogram [ECG] [EKG]; Z82.3 Family history of stroke; Z90.49 Acquired absence of other specified parts of digestive tract; K21.9 Gastro-esophageal reflux disease without esophagitis; Z90.710 Acquired absence of both cervix and uterus